=== PATIENT | male | born 1960 | race Caucasian/White ===

== ENCOUNTER 2021-07-31 06:51 | Day surgery (SDC) | payer OTHER, SELFPAY ==
[~2021-07-31] VITALS: Ht 165.1 cm; Wt 79.4 kg
[2021-07-31] MEDS ORDERED: diphenhydrAMINE 50 MG/ML VIAL ONE (08:23)
[2021-07-31] MEDS ORDERED: MIDAZOLAM 5 MG/5 ML VIAL ONE (08:24)
[2021-07-31] MEDS ORDERED: fentaNYL citrate 0.05 MG/ML VIAL ONE (08:24)
[2021-07-31] MEDS ORDERED: LIDOCAINE 2% 100 MG/5 ML UJET TP ONE (08:24)
[2021-07-31] MEDS ORDERED: fentaNYL citrate 0.05 MG/ML VIAL IVP ONE (13:40)
[2021-07-31] MEDS ORDERED: MIDAZOLAM 2 MG/2 ML VIAL IVP ONE (13:40)
== END 2021-07-31 09:53 | disposition home or self-care (01) ==
LOC: EDBD → MDS 06:51 → MMU 06:52 → MDS 09:53
PROVIDERS: ATTEND Internal Medicine Gastroenterology
DX: Z12.11 Encounter for screening for malignant neoplasm of colon (principal); K57.30 Diverticulosis of large intestine without perforation or abscess without bleeding; Z86.010 Personal history of colon polyps; E11.9 Type 2 diabetes mellitus without complications; Z87.891 Personal history of nicotine dependence; Z79.84 Long term (current) use of oral hypoglycemic drugs; Z79.899 Other long term (current) drug therapy; Z20.822 Contact with and (suspected) exposure to COVID-19
CPT/HCPCS: 36415; 45378; 87426; J2250; J3010; J1200